=== PATIENT | male | born 1960 | race Caucasian/White ===

== ENCOUNTER 2017-11-22 17:50 | Emergency (ER) | payer MEDICARE, OTHER ==
[~2017-11-22] VITALS: Ht 172.7 cm; Wt 74.8 kg
[2017-11-22 17:53] VITALS: BP 152/95
--- NOTE | 2017-11-22 17:56 | NUR ---
PT BIBA TO ED BED 8
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
[2017-11-22] MEDS ORDERED: NACL 0.9% 1,000 ML IV ONE (18:14)
--- NOTE | 2017-11-22 18:25 | NUR ---
PT TO CT VIA [facility] IN NO APPEARENT DISTRESS, WITH DIGITAL MARKETER
[2017-11-22 18:55] LABS: BASOPHILS # (AUTO) 0.1 K/uL (0.00-0.22); EOSINOPHILS # (AUTO) 0.1 K/uL (0-0.4); EOSINOPHILS % (AUTO) 2.3 % (0.0-4.0); HEMATOCRIT 43.4 % (36-52); HEMOGLOBIN 14.4 g/dL (12.0-18.0); LYMPHOCYTES # (AUTO) 1.5 K/uL (2.0-11.5); LYMPHOCYTES % (AUTO) 25.3 % (20.5-51.1); MEAN CORPUSCULAR HEMOGLOBIN 32 pg (27-31); MEAN CORPUSCULAR HGB CONC 33 g/dL (33-37); MEAN CORPUSCULAR VOLUME 96.1 fL (80-94); MONOCYTES # (AUTO) 0.6 K/uL (0.8-1.0); MONOCYTES % (AUTO) 9.9 % (1.7-9.3); NEUTROPHILS # (AUTO) 3.5 K/uL (1.8-7.7); NEUTROPHILS % (AUTO) 60.5 % (42.2-75.2); PLATELET COUNT (AUTO) 288 K/uL (140-450); RED BLOOD CELL COUNT(AUTO) 4.52 MIL/uL (4.20-6.10); RED CELL DISTRIBUTION WIDTH 13.4 % (11.6-13.7); WHITE BLOOD COUNT (AUTO) 5.8 K/uL (4.8-10.8)
[2017-11-22 19:08] LABS: ANION GAP 7.1 (8-16); CARBON DIOXIDE 28.6 mmol/L (21-32); CHLORIDE 102 mmol/L (98-107); CREATININE 1.1 mg/dL (0.7-1.3); GFR ARICAN-AMERICAN 88 mL/min (>90); GLUCOSE 98 mg/dL (74-106); POTASSIUM 3.7 mmol/L (3.5-5.1); SODIUM SERUM 134 mmol/L (136-145); UREA NITROGEN, BLOOD 18 mg/dL (7-18)
[2017-11-22 19:14] LABS: ALBUMIN 3.5 g/dL (3.4-5.0); ASPARTATE AMINOTRANSFERASE 18 U/L (15-37); TOTAL BILIRUBIN 0.3 mg/dL (0.0-1.0)
--- NOTE | 2017-11-22 19:17 | NUR ---
pt lying in bed. vitals stable. comfort measures offerred. tolerated well.
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
--- NOTE | 2017-11-22 20:42 | NUR ---
PT IS READY FOR DISCHARGE. WAITNG FOR PD TO MAKE A POLICE REPORT. MD AWARE OF STATUS.
--- NOTE | 2017-11-22 21:00 | NUR ---
[place] PD AT BEDSIDE
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
--- NOTE | 2017-11-22 22:30 | NUR ---
[facility] PD TOOK REPORT ON PT. PT IS READY FOR D/C. WAITING FOR PAPERWORK. MD AWARE OF STATUS.
[2017-11-22 22:53] VITALS: BP 146/80
--- NOTE | 2017-11-22 22:53 | NUR ---
PT STATED HE DOES NOT HAVE A RIDE HOME DURING DISCHARGE. CHARGE NURSE/NURSE WORKING SUPERVISOR GAVE A TAXI VOUCHER. PT WAS D/C TO THE LOBBY. PT WAITNG FOR TAXI. ADMINISTRATION CONTACTED [employer]. MADE AWARE. PT TOLERATED D/C WELL. VITALS STABLE.
--- NOTE | 2017-11-22 22:53 | NUR ---
Patient discharged with v/s stable. Written and verbal after care instructions given and explained. Patient verbalized understanding. Ambulatory with steady gait/ PT ASKED TO BE WHEEL CHAIR TO LOBBY. PT WAS ABLE TO WALK AROUND IN LOBBY WITHOUT ASSISTANCE. All questions addressed prior to discharge. Advised to follow up with PMD. WAITING FOR TAXI.
== END 2017-11-22 22:53 | disposition home or self-care (01) ==
LOC: MED 17:50
DX: R55 Syncope and collapse (principal); R11.0 Nausea
CPT/HCPCS: 36415; 70450; 71045; 80053; 83605; 83735; 84484; 85025; 93005; 96360; 96361; 99285; G0482; J7030; Q0092

== ENCOUNTER 2017-11-23 09:42 | Emergency (ER) | payer MEDICARE, OTHER ==
[~2017-11-23] VITALS: Ht 177.8 cm; Wt 68.0 kg
[2017-11-23 09:46] VITALS: BP 125/78
--- NOTE | 2017-11-23 09:52 | NUR ---
[facility] TO BED 2. REPORT GIVEN TO JOSH NAVARRETE.
--- NOTE | 2017-11-23 10:00 | NUR ---
PT. BIB ALS FROM HOME DUE TO CHEST PAIN. PT. WAS D/C THIS MORNING FROM ER AND CALLED DUE TO CHEST PAIN SINCE 5PM YESTERDAY. PER ALS CREW " HE SUFFERS FROM SCHIZOPHRENIA AND PARANOIA". PT. DENIES ANY MEDICAL HISTORY AT THIS TIME. DENIES ANY ALLERGIES TO MEDICATIONS. 3/10 NON RADIAITING CHEST PAIN THAT STARTED AFTER PER PT " EATING A RAT POISINING HAMBURGER". DENIES ANY N/V/D. SKIN IS WARM AND DRY. VSS. PT. ABLE TO SPEAK IN FULL AND COMPLETE SENTENCES. PT. HAS NOTICEABLE CHEST WALL SPASMS. PER ALS CREW PT WAS GIVEN " NITRO X 1 AND ASA 325MG EN ROUTE".L FA 18G IV ESTABLISHED EN ROUTE. ER MD NOTIFIED. SAFETY RPECAUTIONS IMPLEMENTED. WILL CONTINUE TO MONITOR.
[2017-11-23] MEDS ORDERED: DIAZEPAM PFS 10 MG/2 ML SYR IM ONE (10:05)
--- NOTE | 2017-11-23 10:11 | NUR ---
SPOKE TO PHARMACY, PER PHARMACY " WE DO NOT HAVE VALIUM, IT IS BACK ORDERED". ER MD PAEZ NOTIFIED.
[2017-11-23] MEDS ORDERED: LORazepam 2 MG/ML VIAL IM ONE (10:15)
[2017-11-23] MEDS ORDERED: LORazepam 1 MG TAB PO ONE (10:25)
[2017-11-23 11:00] VITALS: BP 117/85
--- NOTE | 2017-11-23 11:00 | NUR ---
Patient discharged with v/s stable. Written and verbal after care instructions given and explained. Patient verbalized understanding. Ambulatory with to car. All questions addressed prior to discharge. Advised to follow up with PMD.
== END 2017-11-23 11:00 | disposition home or self-care (01) ==
LOC: MED 09:42
DX: M62.838 Other muscle spasm (principal); F41.9 Anxiety disorder, unspecified; F20.9 Schizophrenia, unspecified
CPT/HCPCS: 93005; 99283; J2060

== ENCOUNTER 2017-11-23 16:51 | Emergency (ER) | payer MEDICARE, OTHER ==
[~2017-11-23] VITALS: Ht 175.3 cm; Wt 68.0 kg
--- NOTE | 2017-11-23 16:52 | NUR ---
PATIENT BIBA TO BED 8.
[2017-11-23 16:55] VITALS: BP 135/80
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
--- NOTE | 2017-11-23 17:42 | NUR ---
pt resting comfortably at this time in the hospital [facility] w/ vss. rr even and unlabored at this time. pt aaox4. safety precautions in place. pt needs met. will continue to monitor.
[2017-11-23 18:28] VITALS: BP 131/76
--- NOTE | 2017-11-23 18:29 | NUR ---
PT CONTINUES TO REST COMFORTABLY IN [facility] AT THIS TIME W/ VSS, RR EVEN AND UNLABORED. SAFETY PRECAUTIONS IN PLACE. WILL CONTINUE TO MONITOR.
--- NOTE | 2017-11-23 18:52 | NUR ---
PT ASLEEP IN [facility] AT THIS TIME W/ VSS, RR EVEN AND UNLABORED. SAFETY PRECAUTIONS IN PLACE. WILL CONTINUE TO MONITOR.
--- NOTE | 2017-11-23 19:17 | NUR ---
REPORT GIVEN TO LANDON PLAZA AT THIS TIME. TRANSFER OF CARE.
--- NOTE | 2017-11-23 19:57 | NUR ---
PT LAYING IN BED, COMFORT NEEDS MET, PT DENIES ANY SUICIDAL IDEATION OR THOUGHTS OF WANTING TO HURT OTHERS. PT STATES HE HAS NO FAMILY OR FRIENDS IN AREA.
--- NOTE | 2017-11-23 21:00 | NUR ---
PT NOT IN ER BED, NOT FOUND IN ER LOBBY OR PARKING LOT.
--- NOTE | 2017-11-23 21:04 | NUR ---
Celso oliver in [facility] - 11/23/17 at 2105 by ALFA PT NOT FOUND IN [facility], OR ER , PT ELOPED AT THIS TIME.
--- NOTE | 2017-11-23 21:06 | NUR ---
PT NOT FOUND IN [facility], OR ER , PT LWBS.
== END 2017-11-23 21:06 | disposition left against medical advice (07) ==
LOC: MED 16:51
DX: R25.1 Tremor, unspecified (principal); Z53.21 Procedure and treatment not carried out due to patient leaving prior to being seen by health care provider